=== PATIENT | female | born 1960 | race Caucasian/White ===

== ENCOUNTER → 2016-12-10 | Outpatient (CLI) | payer MEDICARE, OTHER ==
[~2016-12-10] MED LIST: ABILIFY5 MG PO; ADVIL200 MG PO; AMOXICILLIN 50500 MG PO; ANTIVERT 25MG25 MG PO; ATIVAN 1MG T1 MG/TAB PO; BUPIVACAINE; CALCIUM CARBONATE PO; CELEXA; CELEXA40 MG PO; CLEOCIN HC150 MG/CAP PO; CLONAZEPAM PO; CYMBALTA; CYMBALTA 60MG60 MG PO; DILAUDID 2MG TAB2 MG PO; DITROPAN 5MG TAB5 MG PO; DOXEPIN10 MG PO; DOXYCYCLINE 10100 MG PO; EPA FISH OIL1000 MG PO; ESCITALOPRAM; ESKALITH; FAMVIR 500500 MG/TAB PO; FETZIMA80 PO; GABAPENTIN PO; HYDROMORPHONE HC2 MG PO; KLONOPIN 1MG1 MG PO; LAMICTAL 25MG T25 MG PO; LEVAQUIN 5500 MG/TAB PO; LEXAPRO 10MG10 MG PO; LIORESAL 1010 MG/TAB PO; LYRICA; LYRICA 100MG C100 M1 PO; MACROBID 1100 MG/CAP PO; MORPHINE; MORPHINE PAIN PUMP; MULTIPLE VITAMI1 TA2 PO; MVI; MVI PO; NAPROSYN 2250 MG/TAB PO; NEURONTIN300 MG/CAP PO; NORCO 325 MG-51 TAB PO; OXYCODONE HCL5 MG PO; PAIN PUMP; PERCOCET 325 MG1 TA2 PO; PERCOCET 325 MG1 TA3 PO; PERCOCET 5/321 UDTAB PO; PERCOCET 500 MG1 TAB PO; PHENERGAN 25 TA25 MG PO; PREGABALIN; PREMPRO 0.625/21 TAB PO; PRILOSEC 20MG20 MG PO; REQUIP0.25 MG PO; RESTORIL30 MG PO; RESTORIL7.5 MG PO; RITALIN 20M20 MG/TAB PO; SEE INSTRUCTIONS; SEE INSTRUCTIONS IT; SOMA250 MG PO; TRAZODONE HCL100 MG PO; TRAZODONE100 MG PO; ULTRAM 50MG TAB50 MG PO; VITAMIN E800 I1 PO; VITAMINC1000TA PO; VRAYLAR; WELLBUTRIN PO; ZITHROMAX 250M250 MG PO; ZOFRAN ODT4 MG PO; ZOLOFT
== END ==
LOC: BHSO 13:01
DX: F31.81 Bipolar II disorder (principal)

== ENCOUNTER 2017-01-28 11:05 | Outpatient (CLI) | payer MEDICARE, OTHER ==
[2017-01-28] VITALS (7 sets, daily range): BP systolic 118–145; BP diastolic 72–88; PULSE 87–114
[~2017-01-28] VITALS: Ht 162.6 cm; Wt 56.8 kg
[~2017-01-28 11:05] MED LIST changes: -PRILOSEC 20MG20 MG PO; -VITAMINC1000TA PO; -ZOFRAN ODT4 MG PO
[2017-01-28] MEDS ORDERED: VITAMINC1000TA PO (11:28)
== END 2017-01-28 15:42 | disposition home or self-care (01) ==
LOC: COL.RAD 11:05
DX: M51.26 Other intervertebral disc displacement, lumbar region (principal); M25.78 Osteophyte, vertebrae; M43.8X6 Other specified deforming dorsopathies, lumbar region; G89.29 Other chronic pain
CPT/HCPCS: Q9965

== ENCOUNTER → 2017-02-09 | Outpatient (CLI) | payer MEDICARE, OTHER ==
[~2017-02-09] MED LIST changes: +PRILOSEC 20MG20 MG PO; +VITAMINC1000TA PO; +ZOFRAN ODT4 MG PO
== END ==
LOC: BHSO 12:53
DX: F31.73 Bipolar disorder, in partial remission, most recent episode manic (principal)

== ENCOUNTER 2017-04-02 13:00 | Outpatient (RCR) | payer MEDICARE, OTHER ==
[~2017-04-02 13:00] MED LIST changes: -PRILOSEC 20MG20 MG PO; -ZOFRAN ODT4 MG PO
[2017-04-08] MEDS ORDERED: ZOFRAN ODT4 MG PO (19:00)
[2017-04-08] MEDS ORDERED: PRILOSEC 20MG20 MG PO (19:00)
== END 2017-05-31 | disposition still patient (30) ==
LOC: MKS.ESL.PT
DX: M41.9 Scoliosis, unspecified (principal); M54.5 Low back pain
CPT/HCPCS: G8990-GP; G8991-GP

== ENCOUNTER 2017-04-08 16:36 | Emergency (ER) | payer MEDICARE, OTHER ==
[~2017-04-08] VITALS: Ht 160 cm; Wt 62.7 kg
[2017-04-08 16:43] VITALS: TEMP 98
[2017-04-08 18:54] LABS: ADJUSTED CALCIUM 9.1 mg/dL (8.4-10.2); ALANINE AMINOTRANSFERASE 23 U/L (9-52); ALBUMIN 4.4 gm/dL (3.5-5.0); ALKALINE PHOSPHATASE 82 U/L (50-136); ANION GAP 16 mmol/L (7-16); BILIRUBIN,TOTAL 0.6 mg/dL (0.0-1.0); BLOOD UREA NITROGEN 15 mg/dL (7-17); CALCIUM 9.4 mg/dL (8.4-10.2); CARBON DIOXIDE 26 mmol/L (22-30); CHLORIDE 101 mmol/L (98-107); CREATININE, serum 0.76 mg/dL (0.52-1.25); GLUCOSE 105 mg/dL (74-106); LIPASE 23 U/L (23-300); POTASSIUM 3.9 mmol/L (3.4-5.0); SODIUM 143 mmol/L (137-145); TOTAL PROTEIN 7.5 gm/dL (6.4-8.2)
[2017-04-08] MEDS ORDERED: PRILOSEC 20MG20 MG PO (19:00)
[2017-04-08] MEDS ORDERED: ZOFRAN ODT4 MG PO (19:00)
[2017-04-08 19:06] VITALS: BP 131/68; PULSE 97
[2017-04-08 19:07] LABS: TROPONIN-I < 0.012 ng/mL (0.000-0.034)
== END 2017-04-08 19:06 | disposition home or self-care (01) ==
LOC: COL.ER 16:36
PROVIDERS: Nurse Practitioner
DX: R10.13 Epigastric pain (principal); R11.2 Nausea with vomiting, unspecified; I10 Essential (primary) hypertension; F17.210 Nicotine dependence, cigarettes, uncomplicated; M54.5 Low back pain; G89.29 Other chronic pain; G43.909 Migraine, unspecified, not intractable, without status migrainosus; F32.9 Major depressive disorder, single episode, unspecified

== ENCOUNTER → 2017-07-09 | Outpatient (CLI) | payer MEDICARE, OTHER ==
[~2017-07-09] MED LIST changes: +PRILOSEC 20MG20 MG PO; +ZOFRAN ODT4 MG PO
== END ==
LOC: BHSO 13:00
DX: F31.73 Bipolar disorder, in partial remission, most recent episode manic (principal)

== ENCOUNTER → 2017-10-08 | Outpatient (CLI) | payer MEDICARE, OTHER | LOC: BHSO 12:56 | DX: F31.73 Bipolar disorder, in partial remission, most recent episode manic (principal) ==

== ENCOUNTER → 2017-12-23 | Outpatient (CLI) | payer MEDICARE, OTHER | LOC: MC.RAD 11-30 11:00 | DX: Z12.31 Encounter for screening mammogram for malignant neoplasm of breast (principal) ==

== ENCOUNTER → 2018-02-18 | Outpatient (CLI) | payer MEDICARE, OTHER | LOC: BHSO 12:53 | DX: F31.81 Bipolar II disorder (principal) | CPT/HCPCS: G0463 ==

== ENCOUNTER → 2018-05-25 | Outpatient (CLI) | payer MEDICARE, OTHER | LOC: SUN.DIA 10:52 | DX: E11.9 Type 2 diabetes mellitus without complications (principal); F17.210 Nicotine dependence, cigarettes, uncomplicated | CPT/HCPCS: G0109 ==

== ENCOUNTER → 2018-05-31 | Outpatient (CLI) | payer MEDICARE, OTHER | LOC: SUN.DIA 13:35 | DX: E11.9 Type 2 diabetes mellitus without complications (principal); F17.210 Nicotine dependence, cigarettes, uncomplicated | CPT/HCPCS: G0108 ==

== ENCOUNTER → 2018-06-01 | Outpatient (CLI) | payer MEDICARE, OTHER | LOC: SUN.DIA 10:09 | DX: E11.9 Type 2 diabetes mellitus without complications (principal); F17.210 Nicotine dependence, cigarettes, uncomplicated | CPT/HCPCS: G0109 ==

== ENCOUNTER → 2018-06-08 | Outpatient (CLI) | payer MEDICARE, OTHER | LOC: SUN.DIA 08:32 | DX: E11.9 Type 2 diabetes mellitus without complications (principal); F17.210 Nicotine dependence, cigarettes, uncomplicated | CPT/HCPCS: G0109 ==

== ENCOUNTER → 2018-06-15 | Outpatient (CLI) | payer MEDICARE, OTHER | LOC: SUN.DIA 11:38 | DX: E11.9 Type 2 diabetes mellitus without complications (principal); F17.210 Nicotine dependence, cigarettes, uncomplicated | CPT/HCPCS: G0109 ==

== ENCOUNTER → 2018-06-22 | Outpatient (CLI) | payer MEDICARE, OTHER | LOC: BHSO 13:04 | DX: F41.1 Generalized anxiety disorder (principal) | CPT/HCPCS: G0463 ==

== ENCOUNTER → 2018-06-28 | Outpatient (CLI) | payer MEDICARE, OTHER | LOC: SUN.DIA 11:30 | DX: E11.9 Type 2 diabetes mellitus without complications (principal); F17.210 Nicotine dependence, cigarettes, uncomplicated ==

== ENCOUNTER → 2018-09-14 | Outpatient (CLI) | payer MEDICARE, OTHER | LOC: BHSO 13:33 | DX: F31.81 Bipolar II disorder (principal) | CPT/HCPCS: G0463 ==

== ENCOUNTER → 2018-09-27 | Outpatient (CLI) | payer MEDICARE, OTHER | LOC: SUN.DIA 10:38 | DX: E11.9 Type 2 diabetes mellitus without complications (principal); F17.210 Nicotine dependence, cigarettes, uncomplicated ==

== ENCOUNTER → 2018-11-23 | Outpatient (CLI) | payer MEDICARE, OTHER ==
[~2018-11-23] VITALS: Ht 160 cm; Wt 70.5 kg
[~2018-11-23] MED LIST changes: -CALCIUM CARBONATE PO; +FETZIMA120 PO; +MORPHINE PUMP IT; +NEURONTIN600 MG/TAB PO; +TUMS500 MG PO; +VITAMIN D31000 I1 PO; -VRAYLAR; +VRAYLAR3 MG PO; +[UNRECOGNIZED DRUG - OTHER] PO
[2018-11-23 10:28] VITALS: BP 132/76; PULSE 104
== END ==
LOC: LIGHT 09:51
DX: E11.9 Type 2 diabetes mellitus without complications (principal); E78.00 Pure hypercholesterolemia, unspecified; E66.9 Obesity, unspecified; Z71.3 Dietary counseling and surveillance

== ENCOUNTER → 2018-11-25 | Outpatient (CLI) | payer MEDICARE, OTHER | LOC: BHSO 09:49 | DX: F31.81 Bipolar II disorder (principal) | CPT/HCPCS: G0463 ==

== ENCOUNTER → 2018-12-06 | Outpatient (CLI) | payer MEDICARE, OTHER | LOC: LIGHT 12:53 | DX: E11.9 Type 2 diabetes mellitus without complications (principal); E78.5 Hyperlipidemia, unspecified; M15.9 Polyosteoarthritis, unspecified; E66.9 Obesity, unspecified; Z68.28 Body mass index [BMI] 28.0-28.9, adult; Z71.3 Dietary counseling and surveillance ==

== ENCOUNTER → 2018-12-07 | Outpatient (CLI) | payer MEDICARE, OTHER | LOC: LIGHT 12:53 → BHSO 12:53 | DX: E11.9 Type 2 diabetes mellitus without complications (principal); E78.5 Hyperlipidemia, unspecified; M15.9 Polyosteoarthritis, unspecified; E66.9 Obesity, unspecified; Z68.28 Body mass index [BMI] 28.0-28.9, adult; Z71.3 Dietary counseling and surveillance ==

== ENCOUNTER → 2018-12-22 | Outpatient (CLI) | payer MEDICARE, OTHER ==
[~2018-12-22] VITALS: Ht 157.5 cm; Wt 69.9 kg
[~2018-12-22] MED LIST changes: +FORT1000TA PO
[2018-12-22 14:40] VITALS: BP 144/80; PULSE 108
== END ==
LOC: LIGHT 14:10
DX: E11.65 Type 2 diabetes mellitus with hyperglycemia (principal); E78.5 Hyperlipidemia, unspecified; E11.40 Type 2 diabetes mellitus with diabetic neuropathy, unspecified; E66.9 Obesity, unspecified; Z68.28 Body mass index [BMI] 28.0-28.9, adult; Z71.3 Dietary counseling and surveillance
CPT/HCPCS: G0463

== ENCOUNTER → 2019-01-19 | Outpatient (CLI) | payer MEDICARE, OTHER ==
[~2019-01-19] VITALS: Ht 157.5 cm; Wt 68.3 kg
[~2019-01-19] MED LIST changes: -FORT1000TA PO; +FORTAMET500 M1 PO
[2019-01-19 13:43] VITALS: BP 134/86; PULSE 120
== END ==
LOC: LIGHT 13:06
DX: E11.65 Type 2 diabetes mellitus with hyperglycemia (principal); E11.40 Type 2 diabetes mellitus with diabetic neuropathy, unspecified; E78.5 Hyperlipidemia, unspecified; E66.9 Obesity, unspecified; Z68.27 Body mass index [BMI] 27.0-27.9, adult; Z71.3 Dietary counseling and surveillance
CPT/HCPCS: G0463

== ENCOUNTER → 2019-01-25 | Outpatient (CLI) | payer MEDICARE, OTHER | LOC: MC.RAD 13:10 | DX: Z12.31 Encounter for screening mammogram for malignant neoplasm of breast (principal); N63.10 Unspecified lump in the right breast, unspecified quadrant ==

== ENCOUNTER → 2019-01-31 | Outpatient (CLI) | payer MEDICARE, OTHER | LOC: MC.RAD 12:54 | DX: N63.10 Unspecified lump in the right breast, unspecified quadrant (principal) ==

== ENCOUNTER → 2019-02-16 | Outpatient (CLI) | payer MEDICARE, OTHER ==
[~2019-02-16] VITALS: Ht 157.5 cm; Wt 67.4 kg
[2019-02-16 13:34] VITALS: BP 140/84; PULSE 104
== END ==
LOC: LIGHT 13:10
DX: E11.65 Type 2 diabetes mellitus with hyperglycemia (principal); E78.5 Hyperlipidemia, unspecified; E11.40 Type 2 diabetes mellitus with diabetic neuropathy, unspecified; E66.3 Overweight; Z68.27 Body mass index [BMI] 27.0-27.9, adult; Z71.3 Dietary counseling and surveillance
CPT/HCPCS: G0463

== ENCOUNTER → 2019-03-10 | Outpatient (CLI) | payer MEDICARE, OTHER | LOC: BHSO 12:57 | DX: F31.81 Bipolar II disorder (principal) | CPT/HCPCS: G0463 ==

== ENCOUNTER 2019-04-13 11:29 | Emergency (ER) | payer MEDICARE, OTHER ==
[~2019-04-13] VITALS: Ht 160 cm; Wt 66.8 kg
[2019-04-13 11:32] VITALS: BP 150/84; TEMP 97.8
[2019-04-13] MEDS ORDERED: MEDROL 4MG DOSPA4 MG PO (12:06)
[2019-04-13 12:59] VITALS: PULSE 84
== END 2019-04-13 13:01 | disposition home or self-care (01) ==
LOC: COL.ER 11:29
DX: T63.441A Toxic effect of venom of bees, accidental (unintentional), initial encounter (principal); E11.42 Type 2 diabetes mellitus with diabetic polyneuropathy; K21.9 Gastro-esophageal reflux disease without esophagitis; F17.210 Nicotine dependence, cigarettes, uncomplicated; Z23 Encounter for immunization; Z88.0 Allergy status to penicillin; Z88.2 Allergy status to sulfonamides; Z79.84 Long term (current) use of oral hypoglycemic drugs
CPT/HCPCS: J1200; J7512

== ENCOUNTER → 2019-04-20 | Outpatient (CLI) | payer MEDICARE, OTHER ==
[~2019-04-20] VITALS: Ht 160 cm; Wt 66.2 kg
[~2019-04-20] MED LIST changes: +MEDROL 4MG DOSPA4 MG PO
[2019-04-20 11:16] VITALS: BP 126/76; PULSE 108
== END ==
LOC: LIGHT 03-23 15:09
DX: E11.65 Type 2 diabetes mellitus with hyperglycemia (principal); E78.5 Hyperlipidemia, unspecified; E11.40 Type 2 diabetes mellitus with diabetic neuropathy, unspecified; E66.9 Obesity, unspecified; Z68.25 Body mass index [BMI] 25.0-25.9, adult; Z71.3 Dietary counseling and surveillance
CPT/HCPCS: G0463

== ENCOUNTER → 2019-06-08 | Outpatient (CLI) | payer MEDICARE, OTHER | LOC: BHSO 14:15 | DX: F31.81 Bipolar II disorder (principal) | CPT/HCPCS: G0463 ==

== ENCOUNTER → 2019-06-15 | Outpatient (CLI) | payer MEDICARE, OTHER ==
[~2019-06-15] VITALS: Ht 157.5 cm; Wt 66.5 kg
[~2019-06-15] MED LIST changes: +EPIPEN 2-PAK1 MG/ML IM; +FISH OIL 1000MG1 CAP PO
[2019-06-15 11:02] VITALS: BP 150/86; PULSE 80
== END ==
LOC: LIGHT 10:50
DX: E11.65 Type 2 diabetes mellitus with hyperglycemia (principal); E78.5 Hyperlipidemia, unspecified; E11.40 Type 2 diabetes mellitus with diabetic neuropathy, unspecified; E66.3 Overweight; Z68.26 Body mass index [BMI] 26.0-26.9, adult; Z71.3 Dietary counseling and surveillance
CPT/HCPCS: G0463

== ENCOUNTER → 2019-07-20 | Outpatient (CLI) | payer MEDICARE, OTHER ==
[~2019-07-20] VITALS: Ht 157.5 cm; Wt 66.2 kg
[~2019-07-20] MED LIST changes: +TOPAMAX 25MG25 M1 PO
[2019-07-20 11:15] VITALS: BP 116/80; PULSE 96
== END ==
LOC: LIGHT 07-13 09:22
DX: E11.65 Type 2 diabetes mellitus with hyperglycemia (principal); E78.5 Hyperlipidemia, unspecified; E11.40 Type 2 diabetes mellitus with diabetic neuropathy, unspecified; E66.3 Overweight; Z68.26 Body mass index [BMI] 26.0-26.9, adult; Z71.3 Dietary counseling and surveillance
CPT/HCPCS: G0463

== ENCOUNTER → 2019-08-04 | Outpatient (CLI) | payer MEDICARE, OTHER | LOC: MC.RAD 10:26 | DX: N64.9 Disorder of breast, unspecified (principal) ==

== ENCOUNTER → 2019-08-17 | Outpatient (CLI) | payer MEDICARE, OTHER ==
[~2019-08-17] VITALS: Ht 157.5 cm; Wt 67.1 kg
[~2019-08-17] MED LIST changes: +LAMICTAL150 MG PO; -TOPAMAX 25MG25 M1 PO; +TOPAMAX50 MG PO
[2019-08-17 11:41] VITALS: BP 136/84; PULSE 88
== END ==
LOC: LIGHT 11:11
DX: E11.65 Type 2 diabetes mellitus with hyperglycemia (principal); E78.5 Hyperlipidemia, unspecified; E11.40 Type 2 diabetes mellitus with diabetic neuropathy, unspecified; E66.3 Overweight; Z68.27 Body mass index [BMI] 27.0-27.9, adult; Z71.3 Dietary counseling and surveillance
CPT/HCPCS: G0463

== ENCOUNTER → 2019-09-21 | Outpatient (CLI) | payer MEDICARE, OTHER ==
[~2019-09-21] VITALS: Ht 157.5 cm; Wt 67.1 kg
[~2019-09-21] MED LIST changes: +SYNTHROID 0.0.025 MG PO
[2019-09-21 11:58] VITALS: BP 140/80; PULSE 92
== END ==
LOC: LIGHT 11:43
DX: E11.65 Type 2 diabetes mellitus with hyperglycemia (principal); E78.5 Hyperlipidemia, unspecified; E66.9 Obesity, unspecified; Z68.27 Body mass index [BMI] 27.0-27.9, adult; Z71.3 Dietary counseling and surveillance
CPT/HCPCS: G0463

== ENCOUNTER → 2019-12-07 | Outpatient (CLI) | payer MEDICARE, OTHER ==
[~2019-12-07] VITALS: Ht 157.5 cm; Wt 67.8 kg
[~2019-12-07] MED LIST changes: +PHENTERMINE15 MG PO; +TOPAMAX 25MG25 M1 PO; -TOPAMAX50 MG PO
[2019-12-07 13:38] VITALS: BP 138/86; PULSE 120
== END ==
LOC: LIGHT 13:27
DX: Z68.27 Body mass index [BMI] 27.0-27.9, adult (principal); E11.9 Type 2 diabetes mellitus without complications; E78.5 Hyperlipidemia, unspecified
CPT/HCPCS: G0463

== ENCOUNTER → 2019-12-18 | Outpatient (CLI) | payer MEDICARE, OTHER ==
[~2019-12-18] MED LIST changes: -PHENTERMINE15 MG PO
== END ==
LOC: BHSO 13:08
DX: F31.81 Bipolar II disorder (principal)
CPT/HCPCS: G0463

== ENCOUNTER → 2020-01-11 | Outpatient (CLI) | payer MEDICARE, OTHER ==
[~2020-01-11] VITALS: Ht 157.5 cm; Wt 68.0 kg
[~2020-01-11] MED LIST changes: +PHENTERMINE15 MG PO
[2020-01-11 11:15] VITALS: BP 142/72; PULSE 108
== END ==
LOC: LIGHT 10:46
DX: Z68.33 Body mass index [BMI] 33.0-33.9, adult (principal); E11.9 Type 2 diabetes mellitus without complications; E78.5 Hyperlipidemia, unspecified
CPT/HCPCS: G0463

== ENCOUNTER → 2020-03-25 | Outpatient (CLI) | payer MEDICARE, OTHER | LOC: MC.RAD 18:18 | DX: Z12.31 Encounter for screening mammogram for malignant neoplasm of breast (principal); N63.20 Unspecified lump in the left breast, unspecified quadrant ==

== ENCOUNTER → 2020-04-18 | Outpatient (CLI) | payer MEDICARE, OTHER ==
[~2020-04-18] VITALS: Ht 157.5 cm; Wt 70.8 kg
[~2020-04-18] MED LIST changes: +ADIPEX-P37.5 MG PO; -PHENTERMINE15 MG PO
[2020-04-18 11:05] VITALS: BP 130/80; PULSE 120
== END ==
LOC: LIGHT 02-08 10:23
DX: Z79.84 Long term (current) use of oral hypoglycemic drugs (principal)
CPT/HCPCS: G0463

== ENCOUNTER → 2020-05-23 | Outpatient (CLI) | payer MEDICARE, OTHER ==
[~2020-05-23] VITALS: Ht 157.5 cm; Wt 71.0 kg
[2020-05-23 13:59] VITALS: BP 146/82; PULSE 120
== END ==
LOC: LIGHT 11:35
DX: E66.8 Other obesity (principal); Z68.28 Body mass index [BMI] 28.0-28.9, adult; E11.9 Type 2 diabetes mellitus without complications; E78.5 Hyperlipidemia, unspecified
CPT/HCPCS: G0463

== ENCOUNTER → 2020-06-24 | Outpatient (CLI) | payer MEDICARE, OTHER ==
[~2020-06-24] MED LIST changes: +TOPAMAX 100MG100 M1 PO
== END ==
LOC: BHSO 12:58
DX: F31.81 Bipolar II disorder (principal)
CPT/HCPCS: G0463

== ENCOUNTER → 2020-06-27 | Outpatient (CLI) | payer MEDICARE, OTHER ==
[~2020-06-27] VITALS: Ht 157.5 cm; Wt 69.9 kg
[2020-06-27 11:01] VITALS: BP 146/60; PULSE 104
== END ==
LOC: LIGHT 11:02
DX: E66.8 Other obesity (principal); Z68.28 Body mass index [BMI] 28.0-28.9, adult; E11.9 Type 2 diabetes mellitus without complications; E78.5 Hyperlipidemia, unspecified
CPT/HCPCS: G0463

== ENCOUNTER → 2020-08-22 | Outpatient (CLI) | payer MEDICARE, OTHER ==
[~2020-08-22] VITALS: Ht 157.5 cm; Wt 69.4 kg
[2020-08-22 11:28] VITALS: BP 142/80; PULSE 108
== END ==
LOC: LIGHT 11:20
DX: E66.8 Other obesity (principal); Z68.28 Body mass index [BMI] 28.0-28.9, adult; E11.9 Type 2 diabetes mellitus without complications; E78.5 Hyperlipidemia, unspecified
CPT/HCPCS: G0463

== ENCOUNTER 2020-10-08 13:00 | Outpatient (RCR) | payer MEDICARE, OTHER | END 2020-10-10 | disposition home or self-care (01) | LOC: WSPT | DX: M51.26 Other intervertebral disc displacement, lumbar region (principal); M47.816 Spondylosis without myelopathy or radiculopathy, lumbar region ==

== ENCOUNTER → 2020-11-11 | Outpatient (RCR) | payer MEDICARE, OTHER | END | disposition home or self-care (01) | LOC: WSPT | DX: M47.816 Spondylosis without myelopathy or radiculopathy, lumbar region (principal); M51.26 Other intervertebral disc displacement, lumbar region ==

== ENCOUNTER 2020-12-24 15:45 | Outpatient (RCR) | payer MEDICARE, OTHER | END 2021-01-27 11:40 | disposition home or self-care (01) | LOC: WSPT 15:45 | DX: M47.816 Spondylosis without myelopathy or radiculopathy, lumbar region (principal); M51.26 Other intervertebral disc displacement, lumbar region ==

== ENCOUNTER → 2021-03-26 | Outpatient (CLI) | payer MEDICARE, OTHER ==
[~2021-03-26] MED LIST changes: +LEVAQUIN 5500 MG/TA1 PO
== END ==
LOC: MC.RAD 09:53
DX: Z12.31 Encounter for screening mammogram for malignant neoplasm of breast (principal)

== ENCOUNTER 2021-05-08 05:38 | Emergency (ER) | payer MEDICARE, OTHER ==
[~2021-05-08] VITALS: Ht 157.5 cm; Wt 65.9 kg
[~2021-05-08 05:38] MED LIST changes: -LEVAQUIN 5500 MG/TA1 PO
[2021-05-08 06:04] VITALS: TEMP 98.4
[2021-05-08 06:20] LABS: COLLECTION METHOD CLEAN CATCH
[2021-05-08 06:27] LABS: MUCOUS Present /lpf; PH 5 (5-8); SQUAMOUS EPITHELIAL 0-2 /hpf; URINE APPEARANCE Hazy; URINE BACTERIA Rare /hpf; URINE BILIRUBIN Negative (NEGATIVE); URINE BLOOD Negative (NEGATIVE); URINE COLOR Amber; URINE GLUCOSE Negative (NEGATIVE); URINE KETONE Trace (NEGATIVE); URINE LEUKOCYTE ESTERASE 3+ (NEGATIVE); URINE NITRATE Negative (NEGATIVE); URINE PROTEIN(semi-quant) 1+ (NEGATIVE); URINE RBC 0-2 /hpf; URINE UROBILINOGEN Negative (NEGATIVE)
[2021-05-08 07:27] LABS: BASO % 0.2 % (0.0-2.0); EOS # 0.1 (0.0-0.7); EOS % 0.5 % (0-4.0); GRAN # 6.3 (1.4-6.5); GRAN % 65.3 % (42.2-75.2); HEMOGLOBIN 14.4 g/dl (12.5-16.0); LYMPH # 2.3 (1.2-3.4); MEAN CELL VOLUME 99 fl (80.0-100.0); MEAN CORPUSCULAR HEMOGLOBIN 33 pg (27.0-31.0); MEAN CORPUSCULAR HGB CONC 34 g/dl (33.0-37.0); MEAN PLATELET VOLUME 9.4 fl (7.4-10.4); MONO # 0.9 (0.1-0.6); MONO % 9.7 % (1.7-9.3); PLATELET COUNT 334 K/mm3 (130-400); RED BLOOD COUNT 4.36 M/mm3 (4.10-5.30); REDCELL DISTRIBUTION WIDTH-CV 13.2 % (11.5-14.5)
[2021-05-08 07:33] LABS: ALBUMIN 4.2 gm/dL (3.5-5.0); BILIRUBIN,TOTAL 0.4 mg/dL (0.0-1.0); CALCIUM 9.4 mg/dL (8.4-10.2); CREATININE, serum 0.95 (0.52-1.25); POTASSIUM 3.2 mmol/L (3.4-5.0); TOTAL PROTEIN 7.7 gm/dL (6.4-8.2)
[2021-05-08] MEDS ORDERED: MACROBID 1100 MG/CAP PO (08:03)
[2021-05-08 08:16] VITALS: BP 141/858; PULSE 88
== END 2021-05-08 08:19 | disposition home or self-care (01) ==
LOC: COL.ER 05:38
PROVIDERS: Personal Emergency Response Attendant
DX: N39.0 Urinary tract infection, site not specified (principal); G89.29 Other chronic pain; M25.561 Pain in right knee; F17.210 Nicotine dependence, cigarettes, uncomplicated; Z88.0 Allergy status to penicillin; Z88.2 Allergy status to sulfonamides; Z88.1 Allergy status to other antibiotic agents; Z79.891 Long term (current) use of opiate analgesic; Z20.822 Contact with and (suspected) exposure to COVID-19
CPT/HCPCS: J2270; J2405; J7030

== ENCOUNTER 2021-05-11 11:04 | Emergency (ER) | payer MEDICARE, OTHER ==
[~2021-05-11] VITALS: Ht 157.5 cm; Wt 65.9 kg
[2021-05-11 11:26] VITALS: TEMP 98.3
[2021-05-11 12:25] LABS: COLLECTION METHOD CLEAN CATCH
[2021-05-11 12:34] LABS: MUCOUS Present /lpf; PH 5 (5-8); SQUAMOUS EPITHELIAL 0-2 /hpf; URINE APPEARANCE Clear; URINE BACTERIA Rare /hpf; URINE BILIRUBIN Negative (NEGATIVE); URINE BLOOD Negative (NEGATIVE); URINE COLOR Yellow; URINE GLUCOSE Negative (NEGATIVE); URINE KETONE 1+ (NEGATIVE); URINE LEUKOCYTE ESTERASE Trace (NEGATIVE); URINE NITRATE Negative (NEGATIVE); URINE PROTEIN(semi-quant) Negative (NEGATIVE); URINE RBC 0-2 /hpf
[2021-05-11 13:20] LABS: BASO % 0.2 % (0.0-2.0); EOS # 0.2 (0.0-0.7); EOS % 1.6 % (0-4.0); GRAN # 7.5 (1.4-6.5); GRAN % 62.2 % (42.2-75.2); HEMATOCRIT 42.3 % (37.0-47.0); HEMOGLOBIN 14.2 g/dl (12.5-16.0); LYMPH # 3.4 (1.2-3.4); LYMPH % 28.3 % (20.0-51.0); MEAN CELL VOLUME 100 fl (80.0-100.0); MEAN CORPUSCULAR HEMOGLOBIN 34 pg (27.0-31.0); MEAN CORPUSCULAR HGB CONC 34 g/dl (33.0-37.0); MONO # 0.9 (0.1-0.6); MONO % 7.5 % (1.7-9.3); PLATELET COUNT 299 K/mm3 (130-400); RED BLOOD COUNT 4.23 M/mm3 (4.10-5.30); REDCELL DISTRIBUTION WIDTH-CV 13.6 % (11.5-14.5)
[2021-05-11 13:34] LABS: ALBUMIN 4.1 gm/dL (3.5-5.0); BILIRUBIN,TOTAL 0.3 mg/dL (0.0-1.0); C-REACTIVE PROTEIN 0.7 mg/dL (0.0-0.9); CALCIUM 9.7 mg/dL (8.4-10.2); CREATININE, serum 0.73 (0.52-1.25); POTASSIUM 3.4 mmol/L (3.4-5.0); TOTAL PROTEIN 7.4 gm/dL (6.4-8.2)
[2021-05-11] MEDS ORDERED: LEVAQUIN 5500 MG/TA1 PO (15:07)
[2021-05-11] MEDS ORDERED: ZOFRAN ODT4 MG PO (15:09)
[2021-05-11 16:28] VITALS: BP 126/62; PULSE 82
== END 2021-05-11 16:28 | disposition home or self-care (01) ==
LOC: COL.ER 11:04
PROVIDERS: Family Medicine; Nurse Practitioner
DX: N39.0 Urinary tract infection, site not specified (principal); M79.605 Pain in left leg; G89.29 Other chronic pain; F17.210 Nicotine dependence, cigarettes, uncomplicated; Z88.1 Allergy status to other antibiotic agents; Z88.2 Allergy status to sulfonamides; Z79.891 Long term (current) use of opiate analgesic
CPT/HCPCS: J1956; J2405; J7030

== ENCOUNTER 2021-05-18 05:47 | Emergency (ER) | payer MEDICARE, OTHER ==
[~2021-05-18] VITALS: Ht 157.5 cm; Wt 65.9 kg
[~2021-05-18 05:47] MED LIST changes: +LEVAQUIN 5500 MG/TA1 PO
[2021-05-18 05:58] VITALS: TEMP 98.8
[2021-05-18 06:11] LABS: COLLECTION METHOD CLEAN CATCH
[2021-05-18 06:34] LABS: MUCOUS Present /lpf; PH 5 (5-8); SQUAMOUS EPITHELIAL 0-2 /hpf; URINE APPEARANCE Hazy; URINE BACTERIA Rare /hpf; URINE BILIRUBIN Negative (NEGATIVE); URINE BLOOD Negative (NEGATIVE); URINE CALCIUM OXALATE CRYSTAL Present /hpf; URINE COLOR Amber; URINE GLUCOSE Negative (NEGATIVE); URINE KETONE Negative (NEGATIVE); URINE LEUKOCYTE ESTERASE 1+ (NEGATIVE); URINE NITRATE Negative (NEGATIVE); URINE PROTEIN(semi-quant) 1+ (NEGATIVE); URINE UROBILINOGEN Negative (NEGATIVE)
[2021-05-18 07:20] LABS: COLLECTION METHOD CATHETER
[2021-05-18 07:23] LABS: BASO % 0.2 % (0.0-2.0); EOS # 0.2 (0.0-0.7); EOS % 1.5 % (0-4.0); GRAN # 7.4 (1.4-6.5); GRAN % 59.4 % (42.2-75.2); HEMOGLOBIN 14.2 g/dl (12.5-16.0); LYMPH # 3.7 (1.2-3.4); LYMPH % 29.7 % (20.0-51.0); MEAN CELL VOLUME 102 fl (80.0-100.0); MEAN CORPUSCULAR HEMOGLOBIN 33 pg (27.0-31.0); MEAN CORPUSCULAR HGB CONC 32 g/dl (33.0-37.0); MEAN PLATELET VOLUME 9.4 fl (7.4-10.4); MONO # 1.1 (0.1-0.6); MONO % 8.8 % (1.7-9.3); PLATELET COUNT 358 K/mm3 (130-400); RED BLOOD COUNT 4.33 M/mm3 (4.10-5.30); REDCELL DISTRIBUTION WIDTH-CV 13.8 % (11.5-14.5)
[2021-05-18 07:30] LABS: AMORPHOUS CRYSTAL Present /uL; MUCOUS Present /lpf; PH 6 (5-8); SQUAMOUS EPITHELIAL None Seen /hpf; URINE APPEARANCE Cloudy; URINE BACTERIA Rare /hpf; URINE BILIRUBIN Negative (NEGATIVE); URINE BLOOD Negative (NEGATIVE); URINE COLOR Amber; URINE GLUCOSE Negative (NEGATIVE); URINE KETONE Negative (NEGATIVE); URINE LEUKOCYTE ESTERASE Negative (NEGATIVE); URINE NITRATE Negative (NEGATIVE); URINE PROTEIN(semi-quant) Negative (NEGATIVE); URINE RBC 0-2 /hpf; URINE UROBILINOGEN Negative (NEGATIVE)
[2021-05-18 07:34] LABS: ALBUMIN 4.4 gm/dL (3.5-5.0); BILIRUBIN,TOTAL 0.4 mg/dL (0.0-1.0); CALCIUM 9.7 mg/dL (8.4-10.2); CREATININE, serum 0.87 (0.52-1.25); POTASSIUM 3.5 mmol/L (3.4-5.0); TOTAL PROTEIN 7.8 gm/dL (6.4-8.2)
[2021-05-18 08:30] VITALS: BP 121/68; PULSE 84
== END 2021-05-18 08:33 | disposition home or self-care (01) ==
LOC: COL.ER 05:47
PROVIDERS: Personal Emergency Response Attendant
DX: M54.9 Dorsalgia, unspecified (principal); N39.0 Urinary tract infection, site not specified
CPT/HCPCS: J2270; J2405; J7030; Q9967

== ENCOUNTER 2022-01-04 22:17 | Emergency (ER) | payer MEDICARE ==
[~2022-01-04] VITALS: Ht 157.5 cm; Wt 60.5 kg
[2022-01-04 22:31] VITALS: TEMP 98.4
[2022-01-04 23:45] VITALS: BP 117/71; PULSE 95
== END 2022-01-04 23:46 | disposition home or self-care (01) ==
LOC: COL.ER 22:17
DX: M25.512 Pain in left shoulder (principal); M25.552 Pain in left hip; W10.8XXA Fall (on) (from) other stairs and steps, initial encounter

== ENCOUNTER → 2022-03-18 | Outpatient (CLI) | payer MEDICARE | LOC: COL.RAD 10:01 | DX: M75.122 Complete rotator cuff tear or rupture of left shoulder, not specified as traumatic (principal); M65.822 Other synovitis and tenosynovitis, left upper arm; M75.02 Adhesive capsulitis of left shoulder; M19.012 Primary osteoarthritis, left shoulder | CPT/HCPCS: Q9967 ==

== ENCOUNTER → 2022-04-30 | Outpatient (CLI) | payer MEDICARE, OTHER | LOC: MC.RAD 03-27 10:15 | DX: Z12.31 Encounter for screening mammogram for malignant neoplasm of breast (principal) ==

== ENCOUNTER 2023-08-31 11:13 | Emergency (ER) | payer MEDICARE, OTHER ==
[~2023-08-31] VITALS: Ht 157.5 cm; Wt 58.2 kg
[2023-08-31 11:29] VITALS: TEMP 98.5
[2023-08-31 13:28] LABS: BASO % 0.2 % (0.0-2.0); EOS # 0.1 K/mm3 (0.0-0.7); EOS % 1.3 % (0.0-4.0); GRAN # 6.4 K/mm3 (1.4-6.5); GRAN % 65.6 % (42.2-75.2); HEMATOCRIT 40.8 % (37.0-47.0); HEMOGLOBIN 13.5 g/dl (12.5-16.0); LYMPH # 2.3 K/mm3 (1.2-3.4); MEAN CELL VOLUME 104 fl (80.0-100.0); MEAN CORPUSCULAR HEMOGLOBIN 34 pg (27-31); MEAN CORPUSCULAR HGB CONC 33 g/dl (33.0-37.0); MEAN PLATELET VOLUME 9.4 fl (7.4-10.4); MONO # 0.8 K/mm3 (0.1-0.6); MONO % 8.4 % (1.7-9.3); PLATELET COUNT 287 K/mm3 (130-400); RED BLOOD COUNT 3.93 M/mm3 (4.10-5.30); REDCELL DISTRIBUTION WIDTH-CV 13.5 % (11.5-14.5)
[2023-08-31 13:46] LABS: ALANINE AMINOTRANSFERASE 18 U/L (0-55); ALKALINE PHOSPHATASE 116 U/L (40-150); ANION GAP 12 mmol/L (7-16); AST,SGOT 18 U/L (5-34); BILIRUBIN,TOTAL 0.3 mg/dL (0.2-1.2); BLOOD UREA NITROGEN 17 mg/dL (10-20); CALCIUM 9.5 mg/dL (8.4-10.2); CARBON DIOXIDE 23 mmol/L (23-31); CHLORIDE 107 mmol/L (98-107); CREATININE, serum 0.88 mg/dL (0.57-1.11); GLUCOSE 86 mg/dL (70-99); POTASSIUM 4.1 mmol/L (3.5-4.5); SODIUM 142 mmol/L (136-145); TOTAL PROTEIN 7.6 gm/dL (6.2-8.1)
[2023-08-31 13:56] LABS: TROPONIN-I < 0.010 ng/mL (0.00-0.033)
[2023-08-31 15:27] VITALS: BP 138/75; PULSE 73
== END 2023-08-31 15:28 | disposition home or self-care (01) ==
LOC: COL.ER 11:13
PROVIDERS: Emergency Medicine
DX: R10.12 Left upper quadrant pain (principal); R07.81 Pleurodynia
CPT/HCPCS: Q9967

== ENCOUNTER → 2024-05-15 | Outpatient (CLI) | payer MEDICARE, OTHER | LOC: MC.RAD 11:22 | DX: Z12.31 Encounter for screening mammogram for malignant neoplasm of breast (principal) ==

== ENCOUNTER 2024-06-11 16:47 | Emergency (ER) | payer MEDICARE, OTHER ==
[~2024-06-11] VITALS: Ht 157.5 cm; Wt 63.6 kg
[2024-06-11 16:55] VITALS: TEMP 98.3
[2024-06-11] MEDS ORDERED: droPERidol 2.5 MG/ML 2 ML VIAL IV ONE (18:30)
[2024-06-11] MEDS ORDERED: droPERidol 2.5 MG/ML 2 ML VIAL IM ONE (18:45)
[2024-06-11 20:09] VITALS: BP 100/59; PULSE 87
== END 2024-06-11 20:09 | disposition home or self-care (01) ==
LOC: COL.ER 16:47
DX: G89.29 Other chronic pain (principal); M54.50 Low back pain, unspecified; F17.200 Nicotine dependence, unspecified, uncomplicated
CPT/HCPCS: J1790

== ENCOUNTER 2024-07-27 11:30 | Outpatient (CLI) | payer MEDICARE, OTHER ==
[~2024-07-27] VITALS: Ht 157.5 cm; Wt 63.5 kg
[2024-07-27] MEDS ORDERED: LIORESAL 1010 MG/TAB PO (12:16)
[2024-07-27] MEDS ORDERED: EYE MULTIVITAM1 EAC1 PO (12:17)
[2024-07-27] MEDS ORDERED: EPA FISH OIL1 SGL PO (12:17)
[2024-07-27] MEDS ORDERED: HAIRSKINNAILS PO (12:18)
[2024-07-27] MEDS ORDERED: MIRALAX PA17 GM/Dose PO (12:19)
[2024-07-27] MEDS ORDERED: MULTI VITAMINS1 TAB PO (12:20)
[2024-07-27] MEDS ORDERED: PERCOCET 325 MG1 TA3 PO (12:20)
[2024-07-27] MEDS ORDERED: MORPHINE PUMP (12:20)
[2024-07-27] MEDS ORDERED: PROZAC40 MG PO (12:21)
[2024-07-27] MEDS ORDERED: PRILOSEC 20MG20 MG PO (12:21)
[2024-07-27] MEDS ORDERED: REXULTI3 MG PO (12:22)
[2024-07-27] MEDS ORDERED: REQUIP 1MG T1 MG/TAB PO (12:22)
[2024-07-27] MEDS ORDERED: RITALIN SR20 MG PO (12:23)
[2024-07-27] MEDS ORDERED: TOPAMAX 100MG100 M1 PO (12:25)
[2024-07-27] MEDS ORDERED: TRULICITY3 MG/0.5 M SQ (12:25)
[2024-07-27] MEDS ORDERED: VITAMIN D250 MCG PO (12:26)
[2024-07-27 12:27] VITALS: BP 125/79; PULSE 80; TEMP 97.5
[2024-07-27 13:40] VITALS: BP 131/71; PULSE 75
[2024-07-27 13:45] VITALS: BP 133/72; PULSE 76
[2024-07-27 14:00] VITALS: BP 128/76; PULSE 76
--- NOTE | 2024-07-27 14:05 | NUR ---
Pt assisted to use bedpan. Bandaid remains clean, dry & intact. Pt denies pain or headache. Apple juice and crakcers provided.
[2024-07-27 14:15] VITALS: BP 138/74; PULSE 65
[2024-07-27 14:30] VITALS: BP 131/68; PULSE 63
--- NOTE | 2024-07-27 14:45 | NUR ---
DC instructions reviewed with pt. She expresses understanding. Continues to deny complaints. She is steady on feet in room, transfers self from bed to wheelchair. Taken by WC to friend's car for ride home. Belongings sent with pt. Bandaid remains clean, dry, intact at discharge.
== END 2024-07-27 14:45 | disposition home or self-care (01) ==
LOC: COL.RAD 11:30
DX: M47.812 Spondylosis without myelopathy or radiculopathy, cervical region (principal); M48.07 Spinal stenosis, lumbosacral region
CPT/HCPCS: 32596